=== PATIENT | female | born 2000 | race Caucasian/White ===

== ENCOUNTER 2022-04-17 13:03 | Emergency (ER) | payer OTHER ==
[2022-04-17 13:17] VITALS: BP 142/75
--- NOTE | 2022-04-17 13:25 | ED Physician Documentation ---
PD HPI HEAD INJURY - Stated complaint Stated Complaint: HEAD INJ - Chief complaint Chief Complaint: Trauma Hd/Nk - History obtained from History obtained from: Patient - History of Present Illness Mechanism of head injury: Blow (she struck top of head on metal support beam as stood up, with pain at site and momentarily dazed. then noted some blood trickling down side of head. Sent to ER by chain of command.) Where head injury occurred: Work Timing - onset: Today Location of injury: Top Quality of pain: Aching Associated symptoms: No: LOC, AMS, Nausea / vomiting, Neck pain, Paresthesias Symptoms worsen with: Palpation Similar symptoms before: Has not had sx before Review of Systems Eyes: denies: Loss of vision, Decreased vision Skin: reports: Laceration (s) Neurologic: reports: Head injury. denies: Focal weakness, Numbness, Altered mental status, Headache, LOC PD PAST MEDICAL HISTORY - Past Medical History Neuro: None Endocrine/Autoimmune: None - Present Medications Home Medications: Ambulatory Orders Medication Instructions Recorded Confirmed No Known Home Medications 04/17/22 04/17/22 - Allergies Allergies/Adverse Reactions: Allergies Allergy/AdvReac Type Severity Reaction Status Date / Time No Known Drug Allergies Allergy Verified 04/17/22 13:17 PD ED PE NORMAL - Vitals Vital signs reviewed: Yes - General General: Alert and oriented X 3, No acute distress, Well developed/nourished - HEENT HEENT: PERRL, EOMI, Other (top of head with circular 1 cm diameter abrasion with central 2-3 mm v shaped lac without FB nor current bleeding. ) - Neck Neck: Supple, no meningeal sign, No bony TTP, No adenopathy - Derm Derm: Normal color, Warm and dry Results - Vitals Vitals: Oxygen O2 Source Room air Departure - Departure Disposition: Home, Self Care Clinical Impression: Scalp laceration Qualifiers: Encounter type: initial encounter Qualified Code(s): S01.01XA - Laceration without foreign body of scalp, initial encounter Condition: Stable Record reviewed to determine appropriate education?: Yes Instructions: ED Laceration Small Superf No Sutr Follow-Up: ANYA ARTEAGA MD [Primary Care Provider] - Comments: This is a's very small laceration with a circular abrasion as well. This should heal up fine without any stitches or particular treatment other than ointment couple of times a day. Its okay to wash and shower. Tylenol or ibuprofen or both if needed for pains. Light activity/rest today. Resume normal activity tomorrow assuming you are feeling well. I would anticipate feeling okay later today and tomorrow. Recheck if persistent headache or other concerns. Return to the ER if you have increasing significant headache, blurred vision, confusion, off balance, nausea vomiting or other concerns. Forms: Activity restrictions Discharge Date/Time: 04/17/22 14:14
[2022-04-17] MEDS ORDERED: ACETAMINOPHEN 325 MG TABLET PO STA (13:56)
[2022-04-17] MEDS ORDERED: IBUPROFEN 600 MG TABLET PO STA (13:56)
[2022-04-17] MEDS ORDERED: BACITRACIN ZINC OINT 1 PACKET TOP STA (13:56)
== END 2022-04-17 14:14 | disposition home or self-care (01) ==
LOC: ED 13:03
DX: S01.01XA Laceration without foreign body of scalp, initial encounter (principal); W22.8XXA Striking against or struck by other objects, initial encounter
CPT/HCPCS: 99282; A9270

== ENCOUNTER 2022-08-15 07:18 | Outpatient (CLI) | payer OTHER ==
--- NOTE | 2022-08-15 09:59 | MRI Report ---
PROCEDURE: BRAIN WO INDICATIONS: HX OF CONCUSSION, SCALP LACERATION, DIZZINESS TECHNIQUE: Noncontrast axial T1 spin echo, axial T2 fast spin echo, sagittal and axial FLAIR, coronal T2 fast sp in echo, axial gradient echo, axial diffusion and ADC through the brain. COMPARISON: None. FINDINGS: Image quality: Excellent. CSF Spaces: Basal cisterns are patent. No extra-axial fluid collections. Ventricles are normal in size and shape. Brain: No intracranial masses or hemorrhage. Storey/white matter interface is normal. Brainstem appe ars normal. Diffusion-weighted images demonstrate no acute ischemic insult. No chronic ischemic ins ults. Normal intravascular flow voids are present. Skull and face: Calvarium has normal marrow signal. Orbits appear normal. Sinuses: Sinuses and mastoids are clear. IMPRESSION: 1. No acute intracranial abnormality. 2. No recent infarct. Reviewed by: Carissa Soto MD on 08/15/2022 9:58 AM PST Approved by: Carissa Soto MD on 08/15/2022 9:58 AM PST Station ID: [id number]
== END 2022-08-15 07:19 | disposition home or self-care (01) ==
LOC: DI 07:18
PROVIDERS: ATTEND Student in an Organized Health Care Education/Training Program
DX: S06.0XAA Concussion with loss of consciousness status unknown, initial encounter (principal)

== ENCOUNTER 2023-10-29 13:39 | Outpatient (CLI) | payer OTHER ==
--- NOTE | 2023-10-29 15:15 | Ultrasound Report ---
PROCEDURE: Arterial Duplex Lwr Ext BL INDICATIONS: ATHSCL KOTLIK ARTERIES OF EXTREMITIES, BILATERAL L TECHNIQUE: Color and pulse Doppler interrogation was performed of both lower extremity arterial systems, with im age documentation. COMPARISON: None FINDINGS: Right lower extremity: Common femoral artery: 151 cm/sec, with triphasic flow. Deep femoral artery: 71 cm/sec, with triphasic flow. Proximal superficial femoral artery: 123 cm/sec, with triphasic flow. Mid superficial femoral artery: 128 cm/sec, with triphasic flow. Distal superficial femoral artery: 87 cm/sec, with triphasic flow. Popliteal artery: 59 cm/sec, with triphasic flow. Posterior tibial artery: 39 cm/sec, with triphasic flow. Anterior tibial artery/dorsalis pedis: 47/70 cm/sec, with triphasic flow. Storey-scale imaging description: No atherosclerotic plaque. Left lower extremity: Common femoral artery: 152 cm/sec, with triphasic flow. Deep femoral artery: 94 cm/sec, with triphasic flow. Proximal superficial femoral artery: 136 cm/sec, with triphasic flow. Mid superficial femoral artery: 129 cm/sec, with triphasic flow. Distal superficial femoral artery: 81 cm/sec, with triphasic flow. Popliteal artery: 86 cm/sec, with triphasic flow. Posterior tibial artery: 29 cm/sec, with triphasic flow. Anterior tibial artery/dorsalis pedis: 50/76 cm/sec, with triphasic flow. Storey-scale imaging description: No atherosclerotic plaque. IMPRESSION: 1.Normal triphasic waveforms of the bilateral lower extremity arterial vasculature with no velocity s hift to suggest a hemodynamically significant stenosis. 2.No atherosclerotic plaque. Reviewed by: Darrell Bo MD on 10/29/2023 3:14 PM PDT Approved by: Darrell Bo MD on 10/29/2023 3:14 PM PDT Station ID: [id number]
== END 2023-10-29 13:40 | disposition home or self-care (01) ==
LOC: DI 13:39
PROVIDERS: ATTEND Podiatrist
DX: I70.203 Unspecified atherosclerosis of native arteries of extremities, bilateral legs (principal)
CPT/HCPCS: 93925